=== PATIENT | female | born 1945 | race Caucasian/White ===

== ENCOUNTER 2016-09-28 22:03 | Emergency (ER) | payer MEDICARE, OTHER ==
--- NOTE | ~2016-09-28 | EKG ---
PATIENT: NETTA HOLGUIN UNIT #: [id number] Ventricular Rate: 92 BPM Atrial Rate: 92 BPM P-R Interval: 280 ms QRS Duration: 76 ms Q-T Interval: 366 ms QTC Calculation(Bezet): 452 ms Calculated R [place]: 4 degrees Calculated T [place]: 33 degrees Diagnosis Line: Sinus rhythm with 1st degree A-V block Diagnosis Line: Poor R wave progression questionable lead position Diagnosis Line: or body habitus Diagnosis Line: Abnormal ECG Diagnosis Line: When compared with ECG of 26-MAY-2016 11:12, Diagnosis Line: No significant change was found Diagnosis Line: Confirmed by MCKAYLA AMADO MD ([id number]) on 10/02/2016 Diagnosis Line: 3:42:36 PM INTERPRETING MD: ANEUDY GRUBBS
[~2016-09-28 22:03] MED LIST: ACETAMINOPHEN PO; ALBUTEROL 0.5ML INH; ALBUTEROL NEB; ALBUTEROL0.83 MG/ML IH; ALBUTEROL17 GM INH; AMITIZA24 MCG PO; AMITIZA8 MCG PO; ASPIRIN EC81 M1 PO; ASPIRIN81 M2 PO; ASPIRIN81 MG PO; BACLOFEN10 MG PO; BACTROBAN22 GM TOP; BAYER ASPIRIN325 M1 PO; BAYER CHEWABLE81 MG PO; BENADRYL25 MG PO; BENTYL20 MG PO; BENZONATATE PO; CALCIUM + D 6001 TA1 PO; CALCIUM 500 + D1 TAB PO; CIPRO PO; CLARITIN10 M2 PO; CLARITIN10 M3 DOB; CLARITIN10 M3 PO; COLACE PO; COLACE50 MG PO; CYCLOBENZAPRINE5 MG PO; CYMBALTA30 MG PO; DIAZEPAM PO; DIAZEPAM2 MG PO; DITROPAN5 MG PO; DYNACIN100 MG PO; EFFIENT10 MG PO; FIBERCON625 MG PO; FLEXERIL10 MG PO; FLONASE 0.05% N16 G1; FLONASE 0.05% N16 G1 INH; FLOVENT DI50 MCG/DIS IH; FLUTICASONE PROPIONATE; GABAPENTIN300 M2 PO; GABAPENTIN800 MG PO; GLUCOPHAGE XR500 MG PO; GLYNASE PO; HYDROCODON-ACE1 EAC1 PO; HYDROCODON-ACE1 EAC4 PO; HYDROCODON-ACE1 EAC5 PO; KLONOPIN PO; KLONOPIN1 MG PO; LAMICTAL PO; LAMICTAL XR250 MG PO; LAMICTAL150 MG PO; LAMOTRIGINE100 MG PO; LANTUS100 U/ML SQ; LANTUS100 UNITS/ SQ; LANTUS100 UNITS/ SUBQ; LASIX PO; LEVAQUIN PO; LEVEMIR INSULIN DT; LEVEMIR INSULIN SQ; LEVEMIR SUBQ; LEVEMIR100 UNITS/ SUBQ; LEXAPRO PO; LEXAPRO20 MG PO; LINZESS290 MCG PO; LIORESAL10 MG PO; LISINOPRIL PO; LORTAB 10-3251 EACH PO; LORTAB 10/500 T1 TAB PO; LORTAB 101 TAB 10/5 PO; LORTAB 5/500 TA1 TA1 PO; LUMIGAN2.5 ML OS; MACROBID 100 M100 MG PO; MAGNESIUM CITR296 M1 PO; MEDROL PO; METANX TABLET1 TA1 PO; METANX TABLET1 TAB PO; METFORMIN HCL500 M2 PO; METFORMIN PO; METOLAZONE PO; METOPROLOL PO; METOPROLOL TAR25 MG PO; MEVACOR PO; MEVACOR20 M1 PO; MINOCIN100 M1 PO; MIRALAX PO; MIRALAX17 GM PO; MORPHINE SULFAT30 M3 PO; MURO; NEURONTIN800 MG PO; NITROGLYCERIN SPRAY SL; NITROGLYGERIN0.4 MG; NORCO 10-325 TA1 TAB PO; NORCO 7.5-3251 EACH PO; NORVASC PO; NORVASC10 MG PO; NOVOLIN N100 UNIT/1 SUBQ; NOVOLOG SQ; NOVOLOG100 U/ML SUBQ; NYSTATIN1 EAC1 MC; OMEPRAZOLE PO; OMEPRAZOLE20 M2 PO; OMEPRAZOLE40 MG PO; PHENERGAN PO; PHENERGAN25 M1 DOB; PHENERGAN25 MG PO; PILOCARPINE HCL5 MG PO; PLAQUENIL200 MG PO; PRAVACHOL20 MG PO; PRILOSEC PO; PRILOSEC20 MG PO; PRILOSEC40 MG PO; PRINIVIL5 MG PO; PROMETHAZINE12.5 MG PO; RECTICARE30 GM TOP; ROBAXIN 750750 MG PO; RUTIN PO; SALAGEN5 M1 PO; SENNA LAXATIVE25 MG PO; SEROQUEL PO; SEROQUEL XR200 MG PO; SEROQUEL XR400 M1 PO; SEROQUEL XR400 MG PO; SEROQUEL400 MG PO; SIMVASTATIN40 MG PO; TIMOPTIC 0.5% OP5 M1 OD; TIMOPTIC 0.5% OP5 M1 OU; TIMOPTIC 0.5% OP5 M2 OS; TRIAMCINOLONE10 G1 MC; TRICOR145 MG PO; TRILIPIX; TRILIPIX135 MG PO; VALACYCLOVIR1000 MG PO; VALIUM2 MG PO; VALTREX PO; VASCEPA PO; VASCEPA1 GM PO; VICODIN 5/500 T1 TAB PO; VITAMIN D PO; ZOFRAN PO; ZOFRANODT PO; [UNRECOGNIZED DRUG - OTHER] EXT
[2016-09-28 22:05] LABS: BASOPHIL# 0.2 X10e3 (0-0.3); BASOPHIL% 1.9 % (0-2.5); EOSINOPHIL# 0.3 X10e3 (0-0.7); EOSINOPHIL% 3.2 % (0.0-7.0); HEMATOCRIT 36.9 % (35.0-45.0); HEMOGLOBIN 11.9 gm/dL (12.0-16.0); LYMPHOCYTE# 1.7 X10e3 (1.0-3.5); LYMPHOCYTE% 18.9 % (17.0-45.0); MEAN CELL VOLUME 84.5 FL (83-96); MEAN CORPUSCULAR HEMOGLOBIN 27.3 PG (28-34); MEAN CORPUSCULAR HGB CONC 32.3 g/dL (30-36); MEAN PLATELET VOLUME 7.2 FL (6.5-11.5); MONOCYTE# 0.7 X10e3 (0-1.0); MONOCYTE% 7.9 % (3.0-12.0); NEUTROPHIL# 6.2 X10e3 (1.5-7.1); NEUTROPHIL% 68.1 % (40-75); PLATELET COUNT 246 X10e3 (140-420); RED BLOOD COUNT 4.36 X10e (3.90-5.30); WHITE BLOOD COUNT 9.1 X10e3 (4.0-10.5)
[2016-09-28 22:06] LABS: DIFF IND NO
[2016-09-28 22:10] LABS: INR 1.1; PROTHROMBIN TIME (PATIENT) 12.1 SECONDS (9.5-12.4)
[2016-09-28 22:17] LABS: PARTIAL THROMBOPLASTIN TIME 29.7 SECONDS (25.6-38.1)
[2016-09-28 22:19] LABS: ALBUMIN SERUM 4.1 g/dL (3.5-5.0); ALKALINE PHOSPHATASE 105 U/L (32-92); ALT (SGPT) 17 U/L (10-40); AST (SGOT) 32 U/L (10-42); BILIRUBIN,TOTAL 0.2 mg/dL (0.2-2.0); BLOOD UREA NITROGEN 50 mg/dL (9-23); BUN/CREATININE RATIO 33.33; CALCIUM SERUM 9.1 mg/dL (8.4-10.2); CARBON DIOXIDE 29 mmol/L (22-31); CHLORIDE 99 mmol/L (100-111); CREATININE SERUM 1.5 mg/dL (0.6-1.4); GLOM FILT RATE Estimated 34.5 mL/min (>60); GLUCOSE FASTING 99 mg/dL (70-110); PROTEIN TOTAL SERUM 7.3 g/dL (6.0-8.3); SODIUM 136 mmol/L (135-145)
[2016-09-28 22:20] LABS: BILIRUBIN, DIRECT <0.1 mg/dL (0.0-0.2); BILIRUBIN,INDIRECT 0.1 mg/dL (0.0-0.9)
[2016-11-25] MEDS ORDERED: ASPIRIN PO (11:09)
[2016-11-25] MEDS ORDERED: BACLOFEN PO (11:09)
[2016-11-25] MEDS ORDERED: DIAZEPAM PO (11:11)
[2016-11-25] MEDS ORDERED: BENZONATATE PO (11:11)
[2016-11-25] MEDS ORDERED: HYDROXYZINE PO (11:12)
[2016-11-25] MEDS ORDERED: LASIX PO (11:12)
[2016-11-25] MEDS ORDERED: GABAPENTIN PO (11:12)
[2016-11-25] MEDS ORDERED: KLOR CON PO (11:13)
[2016-11-25] MEDS ORDERED: LAMOTRIGINE PO (11:13)
[2016-11-25] MEDS ORDERED: LEVEMIR INSULIN SQ (11:14)
[2016-11-25] MEDS ORDERED: LINZESS PO (11:14)
[2016-11-25] MEDS ORDERED: NORCO PO (11:15)
[2016-11-25] MEDS ORDERED: MYRBETRIQ PO (11:15)
[2016-11-25] MEDS ORDERED: OMEPRAZOLE PO (11:16)
[2016-11-25] MEDS ORDERED: NOVOLOG INSULIN SQ (11:16)
[2016-11-25] MEDS ORDERED: PILOCARPINE PO (11:17)
[2016-11-25] MEDS ORDERED: QUETIAPINE PO (11:17)
[2016-11-25] MEDS ORDERED: PROMETHAZINE PO (11:17)
[2016-11-25] MEDS ORDERED: ROSUVASTATIN PO (11:19)
[2016-11-25] MEDS ORDERED: TOPIRAMATE PO (11:19)
[2016-11-25] MEDS ORDERED: NITRO SL (11:20)
[2016-11-25] MEDS ORDERED: NOVOLOG (13:25)
[2016-11-25] MEDS ORDERED: BACITRACIN (13:39)
[2016-11-25] MEDS ORDERED: SEE COMMENT (13:41)
[2016-11-25] MEDS ORDERED: HYDROCORTISONE (13:42)
[2016-11-25] MEDS ORDERED: TRIDESILON 0.0515 G2 EXT (13:42)
[2016-11-25] MEDS ORDERED: FLONASE 0.05% N16 G1 INH (13:43)
[2016-11-25] MEDS ORDERED: PLAQUENIL200 MG PO (13:44)
[2016-11-25] MEDS ORDERED: VASCEPA1 GM PO (13:45)
[2016-11-25] MEDS ORDERED: CLARITIN10 M2 PO (13:45)
[2016-11-25] MEDS ORDERED: MINOCIN100 M1 PO (13:46)
[2016-11-25] MEDS ORDERED: ELOCON15 G1 TOP (13:46)
[2016-11-25] MEDS ORDERED: BACTROBAN15 GM TOP (13:47)
[2016-11-25] MEDS ORDERED: [UNRECOGNIZED DRUG - CODE] (13:47)
== END 2016-09-29 00:50 | disposition home or self-care (01) ==
LOC: SED 22:03
PROVIDERS: Emergency Medicine
DX: N17.9 Acute kidney failure, unspecified (principal); I12.9 Hypertensive chronic kidney disease with stage 1 through stage 4 chronic kidney disease, or unspecified chronic kidney disease; N18.9 Chronic kidney disease, unspecified; E87.5 Hyperkalemia; E78.5 Hyperlipidemia, unspecified; J44.9 Chronic obstructive pulmonary disease, unspecified; F31.9 Bipolar disorder, unspecified; K21.9 Gastro-esophageal reflux disease without esophagitis; Z90.49 Acquired absence of other specified parts of digestive tract; Z86.73 Personal history of transient ischemic attack (TIA), and cerebral infarction without residual deficits; Z87.891 Personal history of nicotine dependence; Z88.8 Allergy status to other drugs, medicaments and biological substances; Z79.899 Other long term (current) drug therapy; Z79.82 Long term (current) use of aspirin
CPT/HCPCS: 36415; 80048; 80053; 80076; 85025; 85610; 85730; 93005; 96361; 96374; 96375; 99285

== ENCOUNTER → 2016-11-03 | Outpatient (CLI) | payer MEDICARE, OTHER ==
[~2016-11-03] MED LIST changes: +ASPIRIN PO; +BACITRACIN; +BACLOFEN PO; +BACTROBAN15 GM TOP; +ELOCON15 G1 TOP; +GABAPENTIN PO; +HYDROCORTISONE; +HYDROXYZINE PO; +KLOR CON PO; +LAMOTRIGINE PO; +LINZESS PO; +MYRBETRIQ PO; +NITRO SL; +NORCO PO; +NOVOLOG; +NOVOLOG INSULIN SQ; +PILOCARPINE PO; +PROMETHAZINE PO; +QUETIAPINE PO; +ROSUVASTATIN PO; +SEE COMMENT; +TOPIRAMATE PO; +TRIDESILON 0.0515 G2 EXT; +[UNRECOGNIZED DRUG - CODE]
--- NOTE | ~2016-11-03 | CT4 ---
[facility]. [facility] A Service of [facility] RADIOLOGY TEXT RESULTS PATIENT: NETTA HOLGUIN LOCATION: [facility] [[email or web address]] : 43 UNIT #: [id number] AGE: [address]: Jayjay Juarez MD SEX: F ORDER DR: [id number] [place] [id number] O MR#: [id number] Acc #: [id number] NAME: NETTA HOLGUIN : 1945 SEX: F STUDY DATE/TIME: 11/03/2016 11:03 UNIT: [facility] [[email or web address]] ROOM: STUDY DESCRIPTION: CT Abd and Pelv Wo Cont Attending Physician: Jayjay Juarez M.D. Referring Physician: Jayjay Juarez M.D. Ordering Physician: Jayjay Juarez M.D. Primary Care Physician: Mandeep Blanchard M.D. MEDICAL IMAGING REPORT This report is preliminary unless electronic signature is present. EXAM CT abdomen and pelvis without contrast INDICATION Overactive bladder with suspicion for acute cystitis over the past week. PROCEDURE Unenhanced CT of the abdomen and pelvis. This CT exam was performed with one or more of the following radiation dose reduction techniques: automatic exposure control, adjustment of mA and/or kV according to patient size, and iterative reconstruction. COMPARISON 08/02/2015 FINDINGS ABDOMEN WITHOUT CONTRAST: Chronic parenchymal change in the lung bases. Coronary artery calcification. The liver spleen adrenal glands pancreas unremarkable unenhanced appearance. Previous cholecystectomy. A 3.9 cm cyst in the lower pole right kidney. No radiodense urinary system calculus. Bowel loops are nondilated. Moderate colonic stool burden. PELVIS WITHOUT CONTRAST: No radiodense bladder calculus. No bladder wall thickening. No pelvic fluid. No aggressive-appearing bone lesion. Degenerative change throughout the thoracic and lumbar spine with multilevel posterior fusion. IMPRESSION 1. No clearly acute finding. No radiodense urinary system calculus or STS. [facility] A Service of [facility] RADIOLOGY TEXT RESULTS PATIENT: NETTA HOLGUIN LOCATION: [facility] [[email or web address]] : 43 UNIT #: [id number] AGE: [address]: Jayjay Juarez MD SEX: F ORDER DR: hydronephrosis. No bladder wall thickening. 2. Moderate colonic stool burden. Dictated by... Surendra Cain M.D. THIS IS AN ELECTRONICALLY VERIFIED REPORT Surendra Cain M.D. at 11/03/2016 10:23 PM LITD/suzette TD: 11/03/2016 21:19 JOB #: [id number] MEDICAL IMAGING REPORT Page 1 of 1
== END | disposition home or self-care (01) ==
LOC: SCT 11:01
DX: N30.00 Acute cystitis without hematuria (principal)
CPT/HCPCS: 74176

== ENCOUNTER → 2016-11-25 | Day surgery (SDC) | payer MEDICARE, OTHER ==
--- NOTE | ~2016-11-25 | EKG ---
PATIENT: NETTA HOLGUIN UNIT #: [id number] Ventricular Rate: 78 BPM Atrial Rate: 78 BPM P-R Interval: 208 ms QRS Duration: 86 ms Q-T Interval: 382 ms QTC Calculation(Bezet): 435 ms P [place]: 37 degrees Calculated R [place]: -4 degrees Calculated T [place]: 34 degrees Diagnosis Line: Normal sinus rhythm Diagnosis Line: Normal ECG Diagnosis Line: No previous ECGs available Diagnosis Line: Confirmed by ALYX ORDOÑEZ MD ([id number]) on 11/30/2016 Diagnosis Line: 2:36:19 PM INTERPRETING MD: SMITA GRUBBS
--- NOTE | ~2016-11-25 | OR ---
Unit #: [id number] #: [id number] Patient: NETTA HOLGUIN [id number] [address] [address] [id number] O MR#: [id number] NAME: NETTA HOLGUIN. ROOM: Date of Procedure: 11/25/2016 Admission Date: 11/25/2016 Surgeon: Jayjay Juarez M.D. : 1945 Attending Physician: Jayjay Juarez M.D. Referring Physician: Jayjay Juarez M.D. Primary Care Physician: Mandeep Blanchard M.D. OPERATIVE REPORT PREOPERATIVE DIAGNOSIS Urge incontinence. POSTOPERATIVE DIAGNOSIS Urge incontinence. PROCEDURE PERFORMED Cystoscopy and Botox injection. ANESTHESIA General. DESCRIPTION OF PROCEDURE After informed consent, she was taken to the operating room and placed under general anesthetic and in lithotomy. Her vagina and perineum were prepped and draped in the usual sterile fashion. Cystoscopy showed a normal-appearing urethra and bladder. The entire bladder was inspected. There were no tumors, no stones. She had normal-appearing left and right ureteral orifices. The Botox was injected in multiple locations posterior to the orifices and on the back wall. A total of 200 units were injected. At the end of the procedure, there was no bleeding and there was no injury to the bladder. She tolerated the procedure well. She will be discharged home and will return to see [place] as an outpatient. Dictated by... Ty Christiansen/lydia TD: 11/26/2016 13:21 JOB #: [id number] Unit #: [id number] #: [id number] Patient: NETTA HOLGUIN OPERATIVE REPORT Page 1 of 1 X Jayjay Juarez MD X PROCEDURE OPERATIVE NOTE
[2016-11-25 13:54] LABS: HEMATOCRIT 37.9 % (35.0-45.0); HEMOGLOBIN 12.2 gm/dL (12.0-16.0); MEAN CORPUSCULAR HEMOGLOBIN 27.4 PG (28-34); MEAN CORPUSCULAR HGB CONC 32.2 g/dL (30-36); MEAN PLATELET VOLUME 6.9 FL (6.5-11.5); RED BLOOD COUNT 4.45 X10e (3.90-5.30); RED CELL DISTRIBUTION WIDTH 15.4 % (11.0-15.5); WHITE BLOOD COUNT 7.8 X10e3 (4.0-10.5)
[2016-11-25 14:29] LABS: CALCIUM SERUM 8.9 mg/dL (8.4-10.2); CREATININE SERUM 0.9 mg/dL (0.6-1.4); GLOM FILT RATE Estimated 63.9 mL/min (>60); POTASSIUM 4.7 mmol/L (3.5-5.1)
== END | disposition home or self-care (01) ==
LOC: CSUR 12:51
PROVIDERS: Urology
DX: N39.41 Urge incontinence (principal); J43.9 Emphysema, unspecified; K21.9 Gastro-esophageal reflux disease without esophagitis; I25.2 Old myocardial infarction; M19.90 Unspecified osteoarthritis, unspecified site; E10.9 Type 1 diabetes mellitus without complications; I20.9 Angina pectoris, unspecified; Z87.891 Personal history of nicotine dependence; Z95.5 Presence of coronary angioplasty implant and graft; Z88.5 Allergy status to narcotic agent; Z88.2 Allergy status to sulfonamides; Z88.8 Allergy status to other drugs, medicaments and biological substances; Z91.048 Other nonmedicinal substance allergy status; Z79.82 Long term (current) use of aspirin; Z79.899 Other long term (current) drug therapy; Z79.4 Long term (current) use of insulin; Z98.890 Other specified postprocedural states; Z90.49 Acquired absence of other specified parts of digestive tract; Z79.891 Long term (current) use of opiate analgesic; Z87.440 Personal history of urinary (tract) infections
CPT/HCPCS: 80048; 82947; 85027; 93005; J0585; J1580; J1956; J2250; J2370; J3010

== ENCOUNTER → 2017-01-17 | Outpatient (CLI) | payer MEDICARE, OTHER | END | disposition home or self-care (01) | LOC: SLAB 11:19 | DX: N30.00 Acute cystitis without hematuria (principal) | CPT/HCPCS: 36415; 87086 ==